=== PATIENT | female | born 1960 | race Caucasian/White ===

== ENCOUNTER 2018-09-30 10:47 | Outpatient (CLI) | payer OTHER ==
--- NOTE | 2018-09-30 20:51 | Ultrasound Report ---
FINAL REPORT EXAM: US RENAL BILAT HISTORY: HEMATURIA TECHNIQUE: Retroperitoneal ultrasound PRIORS: None. FINDINGS: The right kidney measures 10.3 x 4.2 x 5.4 centimeters The left kidney measures 10.7 x 4.8 x 5.5 centimeters There is no evidence of hydronephrosis or nephrolithiasis. Renal parenchyma is within normal limits. Images of the urinary bladder demonstrate no focal abnormality. Linear echogenic foci in the right ki dney appear most consistent with crossing vessels. IMPRESSION: No evidence of obstructive uropathy.
== END 2018-09-30 10:48 | disposition home or self-care (01) ==
LOC: US 10:47
PROVIDERS: ATTEND Urology
DX: R31.0 Gross hematuria (principal); I10 Essential (primary) hypertension; E78.00 Pure hypercholesterolemia, unspecified; E11.9 Type 2 diabetes mellitus without complications; E03.9 Hypothyroidism, unspecified; Z90.710 Acquired absence of both cervix and uterus
CPT/HCPCS: 76770

== ENCOUNTER 2019-01-12 13:33 | Day surgery (SDC) | payer OTHER ==
--- NOTE | 2019-01-12 15:13 | Anesthesia Consultation ---
Anesthesia Consult and Med Hx Date of service: 01/12/19 - Airway Anesthetic Teeth Evaluation: Good ROM Head & Neck: Adequate Mental/Hyoid Distance: Adequate Mallampati Class: Class II - Pulmonary Exam CTA: Yes - Cardiac Exam Cardiac Exam: RRR - Pre-Operative Health Status ASA Pre-Surgery Classification: ASA3 Proposed Anesthetic Plan: General - Pulmonary Hx Smoking: No Hx Asthma: No Hx Sleep Apnea: No (MIESAH PRE SCREEN LOW RISK) - Cardiovascular System Hx Hypertension: Yes - Central Nervous System Hx Back Pain: Yes (NECK PAIN) - Gastrointestinal Hx Gastroesophageal Reflux Disease: Yes - Endocrine Hx Non-Insulin Dependent Diabetes: Yes (diet controlled) Hx Hypothyroidism: Yes - Other Systems Hx Alcohol Use: No Hx Cancer: No Hx Obesity: No
--- NOTE | 2019-01-12 15:14 | Anesthesia Day of Surgery ---
Anesthesia Day of Surgery - Day of Surgery Patient Examined: Yes Patient H&P Reviewed: Yes Patient is NPO: Yes
[2019-01-12] MEDS ORDERED: DILAUDID IV PRN (15:15)
[2019-01-12] MEDS ORDERED: ZOFRAN IV PRN (15:15)
[2019-01-12] MEDS ORDERED: VERSED IV NR (16:00)
[2019-01-12] MEDS ORDERED: PEPCID PO NR (16:00)
[2019-01-12] MEDS ORDERED: NACL 0.9% 1000 ML 1,000 ML IV SCH (16:00)
[2019-01-12] MEDS ORDERED: XYLOCAINE MPF 2% ONE (17:03)
[2019-01-12] MEDS ORDERED: DILAUDID ONE (17:03)
[2019-01-12] MEDS ORDERED: DIPRIVAN 10 MG/ML IV ONE (17:03)
[2019-01-12 19:26] VITALS: BP 118/74
== END 2019-01-12 18:15 | disposition home or self-care (01) ==
LOC: OR 13:33
PROVIDERS: ATTEND Urology
DX: R31.0 Gross hematuria (principal); E78.00 Pure hypercholesterolemia, unspecified; I10 Essential (primary) hypertension; K21.9 Gastro-esophageal reflux disease without esophagitis; E11.9 Type 2 diabetes mellitus without complications; E03.9 Hypothyroidism, unspecified; F32.9 Major depressive disorder, single episode, unspecified; Z53.8 Procedure and treatment not carried out for other reasons; Z90.710 Acquired absence of both cervix and uterus; Z87.440 Personal history of urinary (tract) infections; Z79.899 Other long term (current) drug therapy; Z98.890 Other specified postprocedural states
CPT/HCPCS: 82962; J1170; J2250; J2704; J7030